=== PATIENT | female | born 1950 | race Caucasian/White ===

== ENCOUNTER 2017-03-08 08:00 | Outpatient (CLI) | payer MEDICARE, OTHER ==
[2017-03-08 15:58] LABS: ALBUMIN/GLOBULIN RATIO 1.3 (1.0-2.2); BILIRUBIN,TOTAL 0.9 mg/dL (0.2-1.0); BUN - BLOOD UREA NITROGEN 21 mg/dL (6-20); CALCIUM 9.3 mg/dL (8.5-10.3); CARBON DIOXIDE - CO2 28 mmol/L (21-32); CHLORIDE 100 mmol/L (101-111); CREATININE 0.7 mg/dL (0.4-1.0); GFR - MDRD 83 (>89); GLUCOSE 85 mg/dL (70-100); POTASSIUM 3.7 mmol/L (3.5-5.0); SODIUM 136 mmol/L (135-145); TOTAL PROTEIN 7.5 g/dL (6.7-8.2)
[2017-03-08 16:20] LABS: TOTAL T3 0.68 ng/mL (0.87-1.78)
[2017-03-08 16:33] LABS: THYROID STIMULATING HORMONE 1.73 uIU/mL (0.34-5.60)
== END 2017-03-08 08:01 | disposition home or self-care (01) ==
LOC: LAB.R 08:00
PROVIDERS: ATTEND Physician Assistant Medical
DX: E04.9 Nontoxic goiter, unspecified (principal); R53.83 Other fatigue
CPT/HCPCS: 80053; 84436; 84443; 84480; 85025

== ENCOUNTER 2017-03-11 11:12 | Outpatient (CLI) | payer MEDICARE, OTHER ==
--- NOTE | 2017-03-11 16:31 | Ultrasound Report ---
THYROID ULTRASOUND: 03/11/2017 CLINICAL INDICATION: Enlarged thyroid. TECHNIQUE: Real-time scanning was performed with healthcare representative static images obtained. The right lobe measures 3.5 x 1.6 x 1.4 cm, and the left lobe measures 4.7 x 1.5 x 1.4 cm. The isthm us measures 3 mm. There is a 0.4 x 0.3 x 0.2 cm nodule in the mid right lobe, predominantly hypoecho ic. No adenopathy is seen. IMPRESSION: A 4 MM RIGHT THYROID NODULE. JOB #: [id number] EXT JOB #:[id number]
== END 2017-03-11 11:13 | disposition home or self-care (01) ==
LOC: DI 11:12
PROVIDERS: ATTEND Physician Assistant Medical
DX: E04.1 Nontoxic single thyroid nodule (principal)
CPT/HCPCS: 76536

== ENCOUNTER 2017-03-26 12:39 | Outpatient (CLI) | payer MEDICARE, OTHER ==
[2017-03-26] MEDS ORDERED: IOPAMIDOL-300 100 ML VIAL IVP ONE (13:14)
--- NOTE | 2017-03-26 14:45 | CT Report ---
CT NECK WITH CONTRAST: 03/26/2017 CLINICAL INDICATION: Swelling, mass, lump. TECHNIQUE: Axial CT images of the neck were obtained with 100 mL Isovue-300 intravenously. No previ ous exam is available for comparison. FINDINGS: The visualized orbital contents are unremarkable. There is mucosal thickening in the righ t maxillary sinus, compatible with chronic sinus disease. The vascular structures enhance normally. No cervical lymphadenopathy is appreciated. The salivary glands and thyroid gland appear unremarkab le. Osseous structures demonstrate degenerative changes. No discrete solid or cystic mass is apprec iated to explain the patient's symptoms. IMPRESSION: CHRONIC SINUS DISEASE. NO EVIDENCE OF ADENOPATHY. NO DEFINITE NECK MASS IS IDENTIFIED. In accordance with CT protocol optimization, one or more of the following dose reduction techniques w ere utilized for this exam: automated exposure control, adjustment of mA and/or KV based on patient size, or use of iterative reconstructive technique. JOB #: [id number] EXT JOB #:[id number]
== END 2017-03-26 12:40 | disposition home or self-care (01) ==
LOC: DI 12:39
PROVIDERS: ATTEND Physician Assistant Medical
DX: R22.1 Localized swelling, mass and lump, neck (principal); J32.0 Chronic maxillary sinusitis
CPT/HCPCS: 70491; Q9967

== ENCOUNTER 2017-05-13 09:37 | Outpatient (CLI) | payer MEDICARE, OTHER ==
[2017-05-13 16:11] LABS: CHOLESTEROL 203 mg/dL; HDL CHOLESTEROL 100 mg/dL; LDL/HDL RATIO 0.9 (<4.4); TRIGLYCERIDES 63 mg/dL; VLDL CHOLESTEROL 13 mg/dL
[2017-05-13 16:38] LABS: THYROID STIMULATING HORMONE 2.64 uIU/mL (0.34-5.60)
[2017-05-13 16:45] LABS: TOTAL T3 1.39 ng/mL (0.87-1.78)
== END 2017-05-13 09:38 | disposition home or self-care (01) ==
LOC: LAB.R 09:37
PROVIDERS: ATTEND Physician Assistant Medical
DX: Z00.00 Encounter for general adult medical examination without abnormal findings (principal); E55.9 Vitamin D deficiency, unspecified; Z79.899 Other long term (current) drug therapy; E04.9 Nontoxic goiter, unspecified; Z11.59 Encounter for screening for other viral diseases
CPT/HCPCS: 80061; 82306; 84439; 84443; 84480; 84481; 86803

== ENCOUNTER 2017-05-17 11:25 | Outpatient (CLI) | payer MEDICARE, OTHER ==
--- NOTE | 2017-05-19 16:52 | Mammography Report ---
DIGITAL SCREENING MAMMOGRAM: 05/17/2017 CLINICAL INDICATION: A 66-year-old with history of late childbearing, for screening. COMPARISON: 03/2016, 07/2013, 03/2012, 02/2011, 02/2010. TECHNIQUE: Routine CC and MLO projections were obtained of the breasts. FINDINGS: The breasts demonstrate heterogeneously dense fibroglandular parenchyma bilaterally. Coars e and punctate, typically benign calcifications are present. No suspicious masses, clustered microcal cifications, or regions of architectural distortion are identified. IMPRESSION: BENIGN FINDINGS. RECOMMENDATION: ROUTINE ANNUAL SCREENING UNLESS OTHERWISE CLINICALLY INDICATED. BIRADS CATEGORY 2-BENIGN FINDINGS. STANDARD QUALIFYING STATEMENTS 1. This examination was reviewed with the aid of Computer-Aided Detection (CAD). 2. A negative or benign imaging report should not delay biopsy if clinically suspicious findings are present. Consider surgical consultation if warranted. More than 5% of cancers are not identified by i maging. 3. Dense breasts may obscure an underlying neoplasm. JOB #: [id number] EXT JOB #:[id number]
== END 2017-05-17 11:26 | disposition home or self-care (01) ==
LOC: DI.N 11:25
PROVIDERS: ATTEND Physician Assistant Medical
DX: Z12.31 Encounter for screening mammogram for malignant neoplasm of breast (principal)
CPT/HCPCS: 77067

== ENCOUNTER 2017-09-21 23:40 | Emergency (ER) | payer MEDICARE, OTHER ==
[2017-09-22] MEDS ORDERED: LIDOCAINE 2%-EPI 1:100000 20 ML MDV SUBQ STA (00:17)
--- NOTE | 2017-09-22 01:29 | XRAY Report ---
EXAM: LEFT KNEE RADIOGRAPHY EXAM DATE: 09/22/2017 01:00 AM. CLINICAL HISTORY: Laceration with glass check for foreign body. COMPARISON: 11/13/2015. TECHNIQUE: 2 views. FINDINGS: Bones: No fracture seen. No focal area of bone destruction. Joints: No dislocation seen. Joint spaces are relatively well preserved for age. No obvious joint eff usion. Soft Tissues: No radiopaque foreign body identified. IMPRESSION: 1. No acute abnormality seen. No foreign body identified. [facility] Referring Provider Line: [phone] SITE ID: [id number]
--- NOTE | 2017-09-22 02:30 | ED Physician Documentation ---
PD HPI LOWER EXT INJURY - Stated complaint Stated Complaint: LT LEG LACERATION - Chief complaint Chief Complaint: Laceration - History obtained from History obtained from: Patient, Family - History of Present Illness PD HPI LOW EXT INJURY LOCATION: Left, Lower leg Type of injury: Fall, Laceration Where injury occurred: Home Timing - onset: Today Timing - details: Abrupt onset Worsened by: Moving, Palpating Recently seen: Not recently seen - Additional information Additional information: Patient is a 66 year old female presenting to the emergency department for leg laceration. Patient was walking up the stairs with a glass in her hand. Patient ended up falling, dropping the glass and cutting her leg on the glass. states that he washed it out but it continued bleeding. Patient reports that she is up to date on her tetanus. Review of Systems Constitutional: denies: Fever, Chills Eyes: reports: Reviewed and negative Ears: reports: Reviewed and negative Nose: reports: Reviewed and negative Throat: reports: Reviewed and negative Cardiac: denies: Chest pain / pressure, Palpitations Respiratory: denies: Dyspnea, Cough, Wheezing GI: denies: Nausea, Vomiting : reports: Reviewed and negative Skin: reports: Laceration (s) Musculoskeletal: reports: Extremity pain, Joint pain, Extremity swelling, Joint swelling Neurologic: denies: Generalized weakness, Focal weakness Immunocompromised: denies: Immunocompromised PD PAST MEDICAL HISTORY - Present Medications Home Medications: Ambulatory Orders Medication Instructions Recorded Confirmed Aspirin [Oswald Chewable Aspirin] 81 mg PO DAILY 09/24/15 09/24/15 Cholecalciferol (Vitamin D3) 09/24/15 [Vitamin D3] Gabapentin 600 mg PO DAILY 09/24/15 09/24/15 Hydroxychloroquine [Plaquenil] 200 mg PO DAILY 09/24/15 09/24/15 Methotrexate 20 mg PO DAILY 09/24/15 09/24/15 Mycophenolate Sodium [Myfortic] 360 mg PO BID 09/24/15 09/24/15 NIFEdipine [Procardia] 30 mg PO DAILY 09/24/15 09/24/15 Omeprazole 40 mg PO BID 09/24/15 09/24/15 Prasterone (Dhea) [Dhea] 09/24/15 Sertraline [Zoloft] 50 mg pe PO DAILY 09/24/15 09/24/15 HYDROcod/ACETAM 5/325 [[place] 5/325] 1 - 2 ea PO Q6H PRN #15 tablet 09/25/15 cefUROXime axetil [Ceftin] 250 mg PO Q12H #20 tablet 09/25/15 - Allergies Allergies/Adverse Reactions: Allergies Allergy/AdvReac Type Severity Reaction Status Date / Time Penicillins Allergy Unknown Verified 09/22/17 00:02 Sulfa (Sulfonamide Allergy Unknown Verified 09/22/17 00:02 Antibiotics) PD ED PE NORMAL - Vitals Vital signs reviewed: Yes - General General: Alert and oriented X 3, No acute distress - HEENT HEENT: Atraumatic, PERRL - Neck Neck: No bony TTP - Cardiac Cardiac: RRR - Respiratory Respiratory: No respiratory distress - Abdomen Abdomen: Non distended - Neuro Neuro: Alert and oriented X 3, No motor deficit, Normal speech Eye Opening: Spontaneous Motor: Obeys Commands Verbal: Oriented GCS Score: 15 PD ED PE EXPANDED - Derm Derm: Bruising, Laceration(s) - Extremities Extremities: Left knee (6cm stellate laceration on posterior left knee), Motor intact, Sensory intact, Vascular intact, Tendon intact Results - Vitals Vitals: Vital Signs - 24 hr 09/21/17 23:40 Temperature 36.4 C L Heart Rate 88 Respiratory 16 Rate Blood Pressure 118/70 O2 Saturation 95 Oxygen O2 Source Room air - Rads (name of study) knee x-ray Radiology: Final report received (no fb appreciated) Procedures - Laceration (location) posterior knee Length in cm: 6 Wound type: Stellate Neurovascular status: Sensory intact, Motor intact, Vascular intact Anesthesia: Lidocaine 1% with epi Wound Preparation: Betadine, Chlorhexadine, Irrigated copiously NS, Wound explored Deep layer closure: Vicryl Skin layer closure: Size #-0 - enter number (3), Sutures - enter # (18) Other: Patient tolerated well, No complications, Neurovascular intact, Dressing applied, Tetanus UTD Complexity: Intermediate PD MEDICAL DECISION MAKING - ED course Complexity details: reviewed old records, reviewed results, re-evaluated patient , considered differential, d/w patient, d/w family ED course: Patient was seen and examined at bedside. wound was cleaned and imaging was performed. No foreign body was appreciated. Patient's laceration was repaired as described above. Patient required no further work up and was stable for discharge with outpatient follow up. Departure - Departure Disposition: 01 Home, Self Care Clinical Impression: Laceration Condition: Good Instructions: ED Laceration Sure Close Follow-Up: Mechelle Loredo PA-C [Primary Care Provider] - Comments: Your symptoms today were caused by a leg laceration. There are no foreign bodies. The sutures that were placed are dissolvable and don't need to be taken out. You can take motrin or tylenol as needed for pain. You should keep the wound clean and dry. You can apply topical antibiotics. you should follow up with your doctor for any signs of infection. You may return to the emergency department at any time for new, worsening or uncontrollable symptoms.
[2017-09-22 02:49] VITALS: BP 117/76
== END 2017-09-22 02:35 | disposition home or self-care (01) ==
LOC: ED 23:40
DX: S81.012A Laceration without foreign body, left knee, initial encounter (principal); W25.XXXA Contact with sharp glass, initial encounter; W10.8XXA Fall (on) (from) other stairs and steps, initial encounter; Y93.89 Activity, other specified; Y92.009 Unspecified place in unspecified non-institutional (private) residence as the place of occurrence of the external cause; Z79.82 Long term (current) use of aspirin
CPT/HCPCS: 12002; 12032; 99283

== ENCOUNTER 2018-03-08 15:04 | Outpatient (CLI) | payer MEDICARE, OTHER | END 2018-03-08 15:05 | disposition home or self-care (01) | LOC: DI 15:04 | PROVIDERS: ATTEND Physician Assistant Medical | DX: Z53.9 Procedure and treatment not carried out, unspecified reason (principal); Z78.0 Asymptomatic menopausal state ==

== ENCOUNTER 2018-04-12 10:15 | Outpatient (CLI) | payer MEDICARE, OTHER ==
--- NOTE | 2018-04-12 15:12 | DEXA Report ---
REVISED: THIS REPORT WAS ORIGINALLY SIGNED ON 04/15/2018 @ 1512. REPORT MOVED TO CORRECT ACCOUNT ON 04/26/2018. Reason: POSTMENOPAUSAL Procedure Date: 04/12/2018 Accession Number: [id number] / [id number] Procedure: DEX - Dexa Spine and/or Hip CPT Code: FULL RESULT: EXAM: Dexa Spine and/or Hip DATE: 04/12/2018 10:32 AM CLINICAL HISTORY: POSTMENOPAUSAL TECHNIQUE: Dual energy x-ray absorptiometry (DXA) was performed on a [employer] System. Regions measured are the AP Spine, femoral neck, and if needed forearm. COMPARISON: 04/09/2016. In accordance with the International Society for Clinical Densitometry (ISCD) guidelines, data from previous exams may be reanalyzed using current recommendations and techniques. This is done to allow a more accurate basis for comparison with the current study. FINDINGS: The data for the lumbar spine is as follows: BMD (g/cm/cm) T-SCORE Z-SCORE REGION L1 1.077 -0.4 0.8 L2 1.053 -1.2 0.0 L3 1.067 -1.1 0.1 L4 1.037 -1.4 -0.1 TOTAL 1.056 -1.0 0.2 NOTE: All evaluable vertebrae are used for classification The data for the hip is as follows: BMD (g/cm/cm) T-SCORE Z-SCORE REGION Neck 0.887 -1.1 0.3 TOTAL 0.828 -1.4 -0.4 NOTE: The femoral neck or total proximal femur, whichever is lowest, is used for classification. DXA RESULTS SUMMARY: Spine SCAN DATE AGE BMD CHANGE VS CHANGE VS PREVIOUS PREVIOUS % [birth year]12[birth year]2018 68.4 1[age]056 0.018 1.7 04/09/2016 66.4 1[age]038 * Denotes significant change at the 95% confidence level. Denotes dissimilar scan types or analysis methods. DXA RESULTS SUMMARY: Hip SCAN DATE AGE BMD CHANGE VS CHANGE VS PREVIOUS PREVIOUS % 04[age]12[birth year]2018 68.4 0.828 -0.035* -4.1* 04[birth year]09/2016 66.4 0.863 * Denotes significant change at the 95% confidence level. Denotes dissimilar scan types or analysis methods. IMPRESSION: THE WHO CLASSIFICATION BASED ON THE INTERNATIONAL REFERENCE STANDARD IS OSTEOPENIA. THE FRACTURE RISK IS INCREASED. RECOMMENDATION: Patients with diagnosis of osteoporosis or osteopenia should have regular bone mineral density assessment. For those eligible for Medicare, routine testing is allowed once every 2 years. Testing frequency can be increased for patients who have rapidly progressing disease or for those who are receiving medical therapy to restore bone mass. COMMENT: World Health Organization (WHO) definitions for osteoporosis and osteopenia: NORMAL BMD: T-score at -1.0 or higher, fracture risk is low OSTEOPENIA BMD: T-score between -1.0 and -2.5, fracture risk is increased. OSTEOPOROSIS BMD: T-score at -2.5 or lower, fracture risk is high. National Osteoporosis Foundation recommends: 1. Obtain adequate dietary calcium (at least 1200 mg per day) and vitamin D (400-800 international units per day). 2. Participate, as appropriate, in regular weightbearing and muscle-strengthening exercise. 3. Avoid tobacco use and reduce alcohol and caffeine intake. 4. For more detailed information see the website at www.NOF.org. MTDD
== END 2018-04-12 10:45 ==
LOC: DI 10:15
PROVIDERS: ATTEND Physician Assistant Medical
DX: M85.89 Other specified disorders of bone density and structure, multiple sites (principal)
CPT/HCPCS: 77080

== ENCOUNTER 2018-06-27 14:26 | Outpatient (CLI) | payer MEDICARE, OTHER ==
--- NOTE | 2018-06-28 09:22 | Mammography Report ---
Reason: MAMMOGRAPHIC SCREENING FOR BREAST CANCER Procedure Date: 06/27/2018 Accession Number: [id number] / [id number] Procedure: [facility] - Screening Mammo w/Surjit CPT Code: FULL RESULT: EXAM: Screening Mammo w/Surjit DATE: 06/27/2018 3:25 PM CLINICAL HISTORY: Screening encounter. History of late childbearing. TECHNIQUE: Bilateral CC and MLO views were obtained. COMPARISON: 05/17/2017 through 02/28/2010. FINDINGS: The breasts demonstrate heterogeneously dense fibroglandular parenchyma bilaterally. There is a 0.9 cm well-circumscribed ovoid hypodense mass in the left breast best delineated on 3-D tomography is retrospectively identified dating back to 2011 on the prior 2-D mammograms where it is partially obscured, typically benign. No suspicious masses, clustered microcalcifications, or regions of architectural distortion are identified. IMPRESSION: Benign findings RECOMMENDATION: Routine annual screening unless otherwise clinically indicated. BIRADS CATEGORY 2: Benign findings STANDARD QUALIFYING STATEMENTS: 1. This examination was not reviewed with the aid of Computer-Aided Detection (CAD). 2. A negative or benign imaging report should not preclude biopsy if clinically suspicious findings are present. 3. Dense breasts may obscure an underlying neoplasm. 4. This examination was reviewed with the aid of 3D breast imaging (tomosynthesis).
== END 2018-06-27 14:27 | disposition home or self-care (01) ==
LOC: DI 14:26
PROVIDERS: ATTEND Physician Assistant Medical
DX: Z12.31 Encounter for screening mammogram for malignant neoplasm of breast (principal)
CPT/HCPCS: 77063; 77067

== ENCOUNTER 2018-06-27 14:27 | Outpatient (CLI) | payer MEDICARE, OTHER ==
--- NOTE | 2018-06-28 19:35 | Ultrasound Report ---
Reason: THYROID NODULE, RIGHT Procedure Date: 06/27/2018 Accession Number: [id number] / [id number] Procedure: US - Head or Neck Soft Tissue CPT Code: FULL RESULT: EXAM: THYROID ULTRASOUND. EXAM DATE: 06/27/2018 04:10 PM. CLINICAL HISTORY: Right thyroid nodule follow-up. COMPARISON: Head or neck soft tissue 03/11/2017 11:19 AM, neck soft tissue with 03/26/2017 1:04 PM. TECHNIQUE: Real time sonographic imaging of the thyroid was performed by the customer contact specialist. Multiple circulation representative static images were saved for review. FINDINGS: THYROID GLAND: Right Lobe: 1.3 x 4.0 x 1.4 cm, volume 3.8 cc. Mildly heterogeneous echotexture. Right Lobe Nodules: There is a hypoechoic somewhat heterogeneous appearing 3.9 mm right-sided thyroid nodule, along the paramedian portion at the level of the estimates. No microcalcifications are visualized. Equivocal internal vascularity. Left Lobe: 1.4 x 4.3 x 1.2 cm, volume 3.8 cc. Slightly heterogeneous echotexture. Left Lobe Nodules: None. Isthmus: 2.2 cm AP. Isthmic Nodules: None. LYMPH NODES: No adenopathy demonstrated in the central or lateral compartment. OTHER: None. IMPRESSION: Nonspecific 4 mm right thyroid nodule without significant change compared to the prior study. [facility]
== END 2018-06-27 14:28 | disposition home or self-care (01) ==
LOC: DI 14:27
PROVIDERS: ATTEND Physician Assistant Medical
DX: E04.1 Nontoxic single thyroid nodule (principal)
CPT/HCPCS: 76536